=== PATIENT | female | born 1960 | race African-American/Black ===

== ENCOUNTER 2018-12-01 13:37 | Emergency (ER) | payer BC, OTHER ==
--- NOTE | 2018-12-01 14:30 | RAD ---
3 radiographs right ankle. 3 radiographic right foot. 2 radiographs right tibia/fibula. Indication: pain and swelling Comparison: None Impression: Soft tissue swelling throughout the right lower leg, ankle, and foot. No acute fracture. Inferior spurring medial malleolus and lateral malleolus. Enthesophyte formation Achilles tendon insertion. Spurring anterior margin tibial plafond. 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 Electronically signed by: Ponce Carlos MD 12/01/2018 2:28 PM CDT
--- NOTE | 2018-12-01 14:47 | ED.PDOC ---
History of Present Illness - General Chief Complaint: Lower Extremity Injury Time Seen by Provider: 12/01/18 13:45 Source: patient, RN notes reviewed, Vital Signs reviewed, police Exam Limitations: no limitations - History of Present Illness Initial Comments: Pt presents in police custody with d/o right foot/ankle/calf pain. Pt denies swelling. No known trauma except for lifting and moving furniture 3 days ago. Pt denies any cp/sob/palpitations/n/v/numbness/tingling or weakness. Occurred: other - last 2 days Pain - Lower Extremity: severe: Right Calf, Right Ankle, Right Foot Method of Injury: unknown Improving Factors: cold therapy, immobilization Worsening Factors: movement Associated Symptoms: None Review of Systems - Review of Systems Constitutional: States: no symptoms reported EENTM: States: no symptoms reported Respiratory: States: no symptoms reported. Denies: cough, short of breath Cardiology: States: no symptoms reported. Denies: chest pain, palpitations, syncope Gastrointestinal/Abdominal: States: no symptoms reported Genitourinary: States: no symptoms reported Musculoskeletal: States: muscle pain, muscle stiffness Skin: States: no symptoms reported Neurological: States: no symptoms reported All other Systems: Reviewed and Negative Past Medical History (General) - Patient Medical History Hx Asthma: Yes Hx of COPD: Yes Hx Hypertension: Yes Physical Exam - Physical Exam General Appearance: Alert, Well Developed, Well Groomed, Well Hydrated, Well Nourished Eyes, Ears, Nose, Throat: PERRL/EOMI, normal ENT inspection, pharynx normal Neck: full range of motion, supple Cardiovascular/Respiratory: regular rate, rhythm, no M/R/G, no JVD, other - cap refill<2 seconds Gastrointestinal/Abdominal: non-tender, no organomegaly Back: normal inspection, no CVA tenderness, no vertebral tenderness Thigh/Hip: normal inspection, non-tender, no evidence of injury, normal ROM Leg: normal inspection, non-tender, no evidence of injury, normal ROM Knee: normal ROM, bone tenderness, other - pain at fibular head. Negative Homman's sign. No cords felt. Ankle: normal inspection, non-tender, no evidence of injury, normal ROM Foot: normal inspection, non-tender, no evidence of injury, normal ROM Neuro/Tendon: normal sensation, normal motor functions, normal tendon functions, responds to pain Mental Status: alert, oriented x 3 Skin: normal color, warm/dry Progress - Progress Progress: 12/01/18 14:52 Pt's xrays are unremarkable. Plan d/c to [facility] with [facility]. Pt voices understanding of plan. Dao Becerra M.D. #[id number] - EKG/XRAY/CT Xray Comments: Xrays show no bony disease or frx. Departure - Departure Clinical Impression: Sprain of right ankle or foot, Sprain of lower leg Disposition: Discharge to Home or Self Care Condition: Good Departure Forms: ED Discharge - Pt. Copy, Patient Portal Self Enrollment
[2018-12-02 14:33] VITALS: TEMP 96.8
[2018-12-02 14:34] VITALS: BP 136/74; O2SAT 97
== END 2018-12-01 15:00 | disposition home or self-care (01) ==
LOC: ER 13:37
DX: S93.401A Sprain of unspecified ligament of right ankle, initial encounter (principal); S83.91XA Sprain of unspecified site of right knee, initial encounter; J44.9 Chronic obstructive pulmonary disease, unspecified; I10 Essential (primary) hypertension; X50.0XXA Overexertion from strenuous movement or load, initial encounter; Y92.9 Unspecified place or not applicable